=== PATIENT | female | born 1940 | race Caucasian/White ===

== ENCOUNTER 2025-08-04 19:01 | Inpatient (IN) | payer MEDICARE, OTHER ==
[~2025-08-04] VITALS: Ht 152.4 cm; Wt 80.3 kg
[2025-08-04] MEDS ORDERED: MAGN400O6 PO (19:33)
[2025-08-04] MEDS ORDERED: NA P133E RC (19:33)
[2025-08-04] MEDS ORDERED: CELE200C PO (19:33)
[2025-08-04] MEDS ORDERED: BISA10SU11 RC (19:33)
[2025-08-04] MEDS ORDERED: ACET-73 PO (19:33)
[2025-08-04] MEDS ORDERED: ACET325T53 PO (19:33)
[2025-08-04] MEDS ORDERED: VIT1TABL46 PO (19:33)
[2025-08-04] MEDS ORDERED: AMLO2.5T4 PO (19:33)
[2025-08-04] MEDS ORDERED: ESCI5TAB PO (19:33)
[2025-08-04] MEDS ORDERED: ATOR10TA PO (19:33)
[2025-08-04] MEDS ORDERED: DICL100G34 TP (19:33)
[2025-08-04] MEDS ORDERED: CHOL100043 PO (19:33)
[2025-08-04] MEDS ORDERED: TOLT1TAB2 PO (19:33)
[2025-08-04] MEDS ORDERED: CYAN100096 PO (19:33)
[2025-08-04] MEDS: IV NS 0.9% 1,000 ML BAG IV ONE (19:36)
[2025-08-04 20:37] LABS: PLATELET COUNT (AUTO) 256 K/uL (150-450); RED BLOOD CELL COUNT(AUTO) 3.24 MIL/uL (4.0-5.2); RED CELL DISTRIBUTION WIDTH 13.2 % (11.5-15.0); WHITE BLOOD COUNT (AUTO) 8.9 K/uL (4.3-11.0)
[2025-08-04 20:39] LABS: APPEARANCE,URINE CLOUDY (CLEAR); BLOOD, URINE Moderate Ery/uL (NEGATIVE); LEUKOCYTE ESTERASE ,URINE Large (NEGATIVE); NITRITE, URINE POSITIVE (NEGATIVE); UGLUCOSE Negative (NEGATIVE)
[2025-08-04 20:40] LABS: ADD URINE CULTURE YES; SQUAMOUS EPITHELIAL CELL,UR Moderate /HPF (None Seen); URINE AMORPHOUS PHOSPHATES Moderate /HPF (None Seen)
[2025-08-04] MEDS ORDERED: CEFTRIAXONE 1GM BAG (ER ONLY) 50 ML IV ONE (20:51)
[2025-08-04 20:53] LABS: CALCIUM, SERUM 9.0 mg/dL (8.5-10.1); CREATININE 1.2 mg/dL (0.6-1.3); SODIUM SERUM 136 mmol/L (136-145); UREA NITROGEN, BLOOD 36 mg/dL (7-18)
[2025-08-04 20:54] LABS: ASPARTATE AMINOTRANSFERASE 18 U/L (15-37); TOTAL PROTEIN, SERUM 7.8 g/dL (6.4-8.2)
[2025-08-04] MEDS: CEFTRIAXONE 1GM BAG (ER ONLY) 1 GM/50 ML PIGGYBACK IV ONE (20:55)
[2025-08-04] MEDS ORDERED: MAG HYDROX/AL HYDROX/SIMETH 30 ML UDC PO PRN (21:30)
[2025-08-04] MEDS ORDERED: ONDANSETRON HCL/PF 4 MG/2 ML VIAL IVP PRN (21:30)
[2025-08-04] MEDS ORDERED: ACETAMINOPHEN 325 MG TABLET PO PRN (21:30)
[2025-08-04] MEDS ORDERED: MAGNESIUM HYDROXIDE 30 ML UDC PO PRN (21:30)
[2025-08-04] MEDS ORDERED: BISACODYL SUPP (10 MG) 10 MG/SUPP.RECT SUPP.RECT RC PRN (21:30)
[2025-08-04] MEDS ORDERED: NA PHOS,M-B/NA PHOS,DI-BA 1 EA ENEMA RC PRN (21:30)
[2025-08-04 22:15] VITALS: BP 138/92; TEMP 98.2; O2SAT 97
[2025-08-04] MEDS: ATORVASTATIN 10 MG TABLET PO SCH (22:41)
[2025-08-04] MEDS: IV NS 0.9% 1,000 ML IV SCH (22:41)
[2025-08-04] MEDS: ENOXAPARIN SODIUM 30 MG/0.3 ML DISP.SYRIN SQ SCH (22:42)
[2025-08-05 08:00] VITALS: BP 160/65; TEMP 97.3; O2SAT 100
[2025-08-05] MEDS: CHOLECALCIFEROL 1,000 UNIT TABLET (VIT D3) PO SCH (08:35)
[2025-08-05] MEDS: CELECOXIB 100 MG CAPSULE PO SCH (08:35)
[2025-08-05] MEDS: AMLODIPINE BESYLATE 2.5 MG TABLET PO SCH (08:35)
[2025-08-05] MEDS: PANTOPRAZOLE 40 MG TABLET.DR PO SCH (08:35)
[2025-08-05] MEDS: CYANOCOBALAMIN 500 MCG TABLET PO SCH (08:36)
[2025-08-05] MEDS: DICLOFENAC TOPICAL 100 GM TUBE TP SCH (08:36)
[2025-08-05] MEDS: VIT B CMPLX 3/FA/VIT C/BIOTIN 1 TAB TABLET PO SCH (08:36)
[2025-08-05] MEDS: TOLTERODINE 2 MG TABLET PO SCH (09:02)
[2025-08-05 11:28] LABS: PLATELET COUNT (AUTO) 253 K/uL (150-450); RED BLOOD CELL COUNT(AUTO) 3.28 MIL/uL (4.0-5.2); RED CELL DISTRIBUTION WIDTH 13.6 % (11.5-15.0); WHITE BLOOD COUNT (AUTO) 10.5 K/uL (4.3-11.0)
[2025-08-05 11:49] LABS: CALCIUM, SERUM 9.4 mg/dL (8.5-10.1); CREATININE 1.0 mg/dL (0.6-1.3); PHOSPHORUS 2.9 mg/dL (2.5-4.9); SODIUM SERUM 141.0 mmol/L (136-145); UREA NITROGEN, BLOOD 24.0 mg/dL (7-18)
[2025-08-05 16:00] VITALS: BP 140/80; TEMP 97.3; O2SAT 99
[2025-08-05 20:00] VITALS: BP_SYST 142; BP_SYST 144; BP_DIAS 57; BP_DIAS 87; TEMP 98.4; O2SAT 96
[2025-08-05] MEDS: CEFTRIAXONE 1 G in IV D5W 50 ML IV SCH (21:23)
[2025-08-05] MEDS: ESCITALOPRAM OXALATE (10 MG) 10 MG TABLET PO SCH (22:30)
[2025-08-06] VITALS: BP 132/81; TEMP 98.1; O2SAT 98
[2025-08-06 07:33] LABS: PLATELET COUNT (AUTO) 232 K/uL (150-450); RED BLOOD CELL COUNT(AUTO) 3.12 MIL/uL (4.0-5.2); RED CELL DISTRIBUTION WIDTH 13.8 % (11.5-15.0); WHITE BLOOD COUNT (AUTO) 9.0 K/uL (4.3-11.0)
[2025-08-06 07:52] LABS: ASPARTATE AMINOTRANSFERASE 24.0 U/L (15-37); CALCIUM, SERUM 9.4 mg/dL (8.5-10.1); CREATININE 0.9 mg/dL (0.6-1.3); PHOSPHORUS 2.6 mg/dL (2.5-4.9); SODIUM SERUM 140.0 mmol/L (136-145); TOTAL PROTEIN, SERUM 7.2 g/dL (6.4-8.2); UREA NITROGEN, BLOOD 17.0 mg/dL (7-18)
[2025-08-06 08:00] VITALS: BP 162/69; TEMP 97.5; O2SAT 98
[2025-08-06 16:00] VITALS: BP 165/66; TEMP 98.2; O2SAT 98
[2025-08-06 23:00] VITALS: BP 146/70; TEMP 98.8; O2SAT 95
[2025-08-07] MEDS: Z GUARD REMEDY 4 OZ OINT TP PRN (08:25)
[2025-08-07 08:26] VITALS: BP 163/59
[2025-08-07] MEDS ORDERED: CEFT1FRO2 IV (10:08)
== END 2025-08-07 12:50 | DRG 689 ==
LOC: ER 19:05 → MED 21:36
PROVIDERS: ATTEND Nurse Practitioner Family
DX: N39.0 Urinary tract infection, site not specified (principal); G93.41 Metabolic encephalopathy; E44.1 Mild protein-calorie malnutrition; Z66 Do not resuscitate; B96.89 Other specified bacterial agents as the cause of diseases classified elsewhere; F01.53 Vascular dementia, unspecified severity, with mood disturbance; E66.9 Obesity, unspecified; I11.0 Hypertensive heart disease with heart failure; F32.A Depression, unspecified; D64.9 Anemia, unspecified; Z86.73 Personal history of transient ischemic attack (TIA), and cerebral infarction without residual deficits; Z79.899 Other long term (current) drug therapy; Z68.33 Body mass index [BMI] 33.0-33.9, adult; E78.5 Hyperlipidemia, unspecified; E88.09 Other disorders of plasma-protein metabolism, not elsewhere classified; R79.89 Other specified abnormal findings of blood chemistry
CPT/HCPCS: 36415; 71045-TC; 80048-TC; 80076-TC; 81001; 82962-TC; 83690-TC; 83735-TC; 84100-TC; 85025-TC; 87081-TC; 87086-TC; 87186-TC; 97110-TC; 97116-TC; 97530-TC; A4223; G0378; J0696; J1650; J7030; J7060